=== PATIENT | female | born 1995 | race Caucasian/White ===

== ENCOUNTER 2016-06-27 18:38 | Emergency (ER) | payer OTHER ==
[~2016-06-27] VITALS: Ht 157.5 cm; Wt 66.7 kg
--- NOTE | 2016-06-27 19:04 | ED AMS/SEIZURE/WEAK/DIZZY ---
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 PT REPORTS SHE HAS NOT FELT GOOD ALL DAY, COMPLAINING OF LIGHTHEADEDNESS, FEELING SWEATY, TINGLING TO LEGS AND THEN ARMS, MIGRAINE HEADACHE, BLURRY VISION, CP AND THEN PASSED OUT. REPORTS SIMILAR EPISODE TWO DAYS AGO AND CHECKED OUT AMA. PT REPORTS PERCOCET (NON-PRESCRIPTION) USE YESTERDAY. DOES ADMIT TO PREVIOUS HISTORY OF +SI, DENIES CURRENTLY BUT DOES REPORT THOUGHTS OF +SI EARLIER TODAY. PT ALERT BUT DROWSY ON ASSESSMENT. Triage Nurses Notes Reviewed? yes Onset: Abrupt Duration: week(s):, intermittent Injury Environment: home No Modifying Factors: none : No Patient currently breastfeeds: No HPI: 20-year-old female comes into emergency room for further evaluation of unresponsive episode. Patient reports that intermittently specifically 3 times over the past couple months she has been experiencing a headache followed by some numbness and tingling in her upper and lower extremities followed by an episode of vomiting and then she passes out. She was at [facility] a couple days ago. She reports some cocaine use prior to that. She denies any other current drug use. She reports that she did not feel like waiting for the CT scan and left. Today she was found in the car when her friends went into the store. She was not responding and she had some convulsions. She denies any drug use today. She denies any suicidal or homicidal ideation to me. She had a fleeting thought that she mentioned to the nurse earlier today but she reports that these occur intermittently for her and that is normal. She is alert and oriented and clinically sober and does not admit to any thoughts of wanting to hurt herself. (EUN TAM,VETO) Reconcile Medications Clonidine HCl 0.1 MG TABLET 1 TAB PO TID PRN ANXIETY (Reported) Gabapentin (Unknown Strength) CAPSULE (Unknown Dose) UNKNOWN (Reported) Lisdexamfetamine Dimesylate (Vyvanse) (Unknown Strength) CAPSULE (Unknown Dose ) UNKNOWN (Reported) Sulfamethoxazole/Trimethoprim (Bactrim Ds Tablet) 800 MG-160 MG TABLET 1 TAB PO BID URINE INFECTION X 3 DAYS (ORLANDO MAGALLANES,JANNET Vazquez) Past History Travel History Traveled to [place] past 21 day No Medical History Any Pertinent Medical History? see below for history Neurological: NONE EENT: NONE Cardiovascular: NONE Respiratory: NONE Gastrointestinal: NONE Hepatic: NONE Renal: NONE Musculoskeletal: SCOLIOSIS Psychiatric: anxiety, SUICIDALITY Endocrine: NONE Blood Disorders: NONE Cancer(s): NONE RETAIL GENERAL MANAGER/Reproductive: NONE Surgical History Surgical History: non-contributory Psychosocial History Who do you live with Significant Other What is your primary language Italian Tobacco Use: Current Daily Use Daily Tobacco Use Amount/Type: => 5 Cigarettes daily ETOH Use: occasional use Illicit Drug Use: cocaine, marijuana Family History Hx Contributory? No (VETO HARTLEY) Review of Systems Review of Systems Constitutional: Reports: no symptoms. EENTM: Reports: no symptoms. Respiratory: Reports: no symptoms. Cardiovascular: Reports: no symptoms. GI: Reports: no symptoms. Genitourinary: Reports: no symptoms. Musculoskeletal: Reports: no symptoms. Skin: Reports: no symptoms. Neurological/Psychological: Reports: see HPI. Hematologic/Endocrine: Reports: no symptoms. Immunologic/Allergic: Reports: no symptoms. All Other Systems: Reviewed and Negative (VETO HARTLEY) Physical Exam Physical Exam General Appearance: well developed/nourished, no apparent distress, alert, awake Head: atraumatic, normal appearance Eyes: Bilateral: normal appearance, EOMI. Ears, Nose, Throat: normal pharynx, normal ENT inspection, hearing grossly normal Neck: normal inspection, full range of motion Respiratory: normal breath sounds, chest non-tender, no respiratory distress Cardiovascular: regular rate/rhythm Gastrointestinal: soft, non-tender Back: normal inspection Extremities: normal range of motion Neurologic/Psych: no motor/sensory deficits, awake, alert, oriented x 3, normal gait, normal mood/affect, demand planning analyst II-XII nml as tested Skin: intact, normal color (VETO HARTLEY) Core Measures ACS in differential dx? No CVA/TIA Diagnosis: No Severe Sepsis Present: No Septic Shock Present: No (OR[place]O MAGALLANES,JANNET Vazquez) Progress Differential Diagnosis: arrythmia, alcohol intoxication, anemia, benign positional vertigo, CVA/stroke, dehydration, drug intoxication, encephalitis, electrolyte imbalance, hypoglycemia, hypoxia, intracranial Hem., intracranial mass/tumor, labrynthitis, meningitis, multiple sclerosis, pneumonia, presyncope, post-traumatic vertigo, sepsis, seizure disorder, subarachnoid Hem., UTI/pyelo, vertebrobasilar insuff Plan of Care: Orders Procedure Date/time Status Telemetry/Assistant Banquet Manager 06/27 1852 Active URINE DRUGS OF ABUSE 06/27 1852 Complete URINE 06/27 1852 Complete URINALYSIS 06/27 1852 Complete TROPONIN LEVEL 06/27 1852 Complete PROLACTIN 06/27 1852 Complete COMPREHENSIVE METABOLIC PANEL 06/27 1852 Complete CBC WITHOUT DIFFERENTIAL 06/27 1852 Complete EKG 06/27 1852 Active Laboratory Tests 06/27/161945: Urine Opiates Screen 177.00, Methadone Screen < 40, Barbiturate Screen < 60, Ur Phencyclidine Scrn < 6.00, Amphetamines Screen 188, U Benzodiazepines Scrn > 800 H, Urine Cocaine Screen > 1000 H, Urine Cannabis Screen 78.50 H, Urine Color YEL, Urine Clarity HAZY H, Urine pH 6.0, Ur Specific Tranquillity 1.025, Urine Protein 30 H, Urine Ketones 15 H, Urine Nitrite POS H, Urine Bilirubin NEG@ ICTO, Urine Urobilinogen 1.0, Ur Leukocyte Esterase TRACE H, Ur Microscopic SEDIMENT EXAMINED, Urine RBC 1-3, Urine WBC 5-10 H, Ur Epithelial Cells FEW, Urine Bacteria PACKD H, Urine Hemoglobin SMALL H, Urine Glucose NEG, Urine Test NEGATIVE 06/27/161901: Anion Gap 13, Estimated GFR > 60, BUN/Creatinine Ratio 18.8, Glucose 95, Calcium 9.2, Total Bilirubin 0.5, AST 16, ALT 26, Alkaline Phosphatase 101, Troponin I < 0.01, Total Protein 6.9, Albumin 4.4, Globulin 2.5, Albumin/Globulin Ratio 1.8, Prolactin 3.4, CBC w Diff NO MAN DIFF REQ, RBC 4.36, MCV 87.4, MCH 30.0, RDW 13.3, MPV 9.0, Gran % 61.5, Lymphocytes % 29.0, Monocytes % 7.8, Eosinophils % 1.2, Basophils % 0.5, Absolute Granulocytes 4.0, Absolute Lymphocytes 1.9, Absolute Monocytes 0.5, Absolute Eosinophils 0.1, Absolute Basophils 0, PUBS MCHC 34.3 Diagnostic Imaging: Viewed by Me: CT Scan. Discussed w/RAD: CT Scan. Initial ED EKG: normal intervals, normal p-waves, normal sinus rhythm, rate (69) Hand-Off Endorsed To: JANNET PERRY MD Endorsed Time: 1923 Pending: CT, EKG, labs (EUN TAM,VETO) Radiology Impression: head ct... neg.. full report below. Comments: PATIENT: KASIA MEDINA PRESENT AGE: 20 PATIENT ACCOUNT NO: [id number] : 94 LOCATION: [facility] ORDERING PHYSICIAN: VETO TAM SERVICE DATE: 06/27/16 EXAM TYPE: CAT - CT HEAD WO IV CONTRAST EXAMINATION: CT HEAD WITHOUT CONTRAST CLINICAL INFORMATION: Headache. Seizure. COMPARISON: 06/26/2005. TECHNIQUE: Contiguous helical images of the brain were obtained without IV contrast. Multiplanar reconstructions were performed. DLP: 601 mGy-cm. FINDINGS: There are no pathologic extra-axial fluid collections. The lateral, third, fourth ventricles are nondilated and concordant with the appearance of the sulci. There is no evidence for acute intraparenchymal hemorrhage or infarct. There is neither mass nor mass effect. There is no shift of midline structures. The paranasal sinuses and mastoid air cells are clear. There are no osseous lesions. IMPRESSION: No evidence for acute intracranial injury. DICTATED BY: MONICA MURDOCK MD DATE/TIME DICTATED:06/27/162050 GLAZIER HELPER:MANFRED DATE/TIME TRANSCRIBED:06/27/162050 CONFIDENTIAL, DO NOT COPY WITHOUT APPROPRIATE AUTHORIZATION. <Electronically signed in Other Vendor System> SIGNED BY: MONICA MURDOCK MD 06/27/162057 (JANNET PERRY MD) Departure Departure Disposition: STILL A PATIENT Condition: Stable Referrals: AGUILAR MAGALLANES,JAZ TRINIDAD MD,PAOLA A. (PCP/Family) Additional Instructions: Follow-up with neurologist provided. Return if any other concerns worsening symptoms. Please go over all results of today's visit with your primary care doctor. Contact your primary care doctor to let them know you were here in the emergency room. There may be nonspecific findings which may not be related to your visit today here in the emergency room but may require further evaluation and chronic monitoring by your primary care doctor. If you had a laceration today the chance of foreign body always remains. You should follow-up with your primary care doctor for recheck in 3-5 days for a wound check. If you had an x-ray done there is a chance that a fracture could have been missed on initial read and you should follow-up with your primary care doctor for repeat x-rays if symptoms persist. If your blood pressure was elevated here in the emergency room please have rechecked by her primary care doctor within the next 48 hours by your primary care doctor. If you were prescribed a narcotic here in the emergency room or any type of controlled substances you're not allowed to drive while taking this medication or operate any type of heavy machinery. Narcotics can make you feel lightheaded dizziness nausea and can cause constipation. You may need to order picker a stool softener. Thank you for choosing [facility] emergency room. Please return to the emergency room immediately if you have any other concerns worsening of symptoms. Departure Forms: Customer Survey General Discharge Information (VETO HARTLEY) Departure Clinical Impression Primary Impression: Unresponsive episode Secondary Impressions: Cocaine abuse, Frequent headaches, UTI (urinary tract infection) Prescriptions: Current Visit Scripts Sulfamethoxazole/Trimethoprim (Bactrim Ds Tablet) 1 TAB PO BID #6 TAB X 3 DAYS Comments 06/27/16, 22:06pm... head ct neg... u/a suggestive of contaminant vs uti... pt reports mild symptoms... exam is otherwise benign.... she denies SI/HI. She does not wish to speak with a crises counselor. She would like to go home. She is safe for discharge. PA/WAREHOUSE INVENTORY CLERK Co-Sign Statement Statement: ED Attending supervision documentation- [x] I saw and evaluated the patient. I have also reviewed all the pertinent lab results and diagnostic results. I agree with the findings and the plan of care as documented in the PA's/WAREHOUSE INVENTORY CLERK's documentation. see above... [] I have reviewed the ED Record and agree with the PA's/WAREHOUSE INVENTORY CLERK's documentation. [] Additions or exceptions (if any) to the PAs/WAREHOUSE INVENTORY CLERK's note and plan are summarized below: [] (OR[place]O MAGALLANES,JANNET Vazquez)
[2016-06-27 19:21] LABS: ABSOLUTE BASOPHIL COUNT 0 /CUMM (0.0-0.2); ABSOLUTE EOSINOPHIL COUNT 0.1 /CUMM (0.0-0.7); ABSOLUTE LYMPH COUNT 1.9 /CUMM (1.2-3.4); ABSOLUTE MONOCYTE COUNT 0.5 /CUMM (0.10-0.60); BASOPHIL % 0.5 % (0.0-2.0); EOSINOPHIL % 1.2 % (0-5); GRANULOCYTE % 61.5 % (42.2-75.2); HEMATOCRIT 38.1 % (37-47); MEAN CORPUSCULAR HGB CONC 34.3 G/DL (33.0-37.0); MEAN CORPUSCULAR VOLUME 87.4 FL (81.0-99.0); PLATELET COUNT 309 /CUMM (130-400); RBC DISTRIBUTION WIDTH 13.3 % (11.5-14.5); RED BLOOD CELL CT 4.36 /CUMM (4.20-5.40); WHITE BLOOD CELL COUNT 6.5 /CUMM (4.8-10.8)
[2016-06-27] MEDS ORDERED: CLONIDINE HCL0.1 MG PO (19:43)
[2016-06-27] MEDS ORDERED: VYVANSE30 M1 (19:44)
[2016-06-27] MEDS ORDERED: GABAPENTIN300 M2 (19:45)
--- NOTE | 2016-06-27 20:58 | CT SCAN REPORT ---
EXAMINATION: CT HEAD WITHOUT CONTRAST CLINICAL INFORMATION: Headache. Seizure. COMPARISON: 06/26/2005. TECHNIQUE: Contiguous helical images of the brain were obtained without IV contrast. Multiplanar reconstructions were performed. DLP: 601 mGy-cm. FINDINGS: There are no pathologic extra-axial fluid collections. The lateral, third, fourth ventricles are nondilated and concordant with the appearance of the sulci. There is no evidence for acute intraparenchymal hemorrhage or infarct. There is neither mass nor mass effect. There is no shift of midline structures. The paranasal sinuses and mastoid air cells are clear. There are no osseous lesions. IMPRESSION: No evidence for acute intracranial injury.
[2016-06-27 21:46] VITALS: BP 116/76
[2016-06-27] MEDS ORDERED: BACTRIM DS TAB1 EACH PO (22:05)
== END 2016-06-27 22:18 ==
LOC: ERH 18:38
PROVIDERS: Physician Assistant Medical
DX: F14.10 Cocaine abuse, uncomplicated (principal); R41.82 Altered mental status, unspecified; N39.0 Urinary tract infection, site not specified
CPT/HCPCS: 80307; 81001; 81025; 93005; 93010